=== PATIENT | female | born 1985 | race Hispanic/Latino ===

== ENCOUNTER 2018-10-16 18:51 | Emergency (ER) | payer OTHER ==
[2018-10-16 19:41] VITALS: BP 123/78
--- NOTE | 2018-10-16 20:20 | Emergency Department Report ---
Blank Doc - Documentation Documentation: This is a 33-year-old female that presents with acute on chronic to lower back pain. Stated has history of sciatica. This initial assessment/diagnostic orders/clinical plan/treatment(s) is/are subject to change based on patient's health status, clinical progression and re-assessment by fellow clinical providers in the ED. Further treatment and workup at subsequent clinical providers discretion. Patient/guardians urged not to elope from the ED as their condition may be serious if not clinically assessed and managed. Initial orders include: 1- Patient sent to [facility] for further evaluation and treatment
[2018-10-17] MEDS ORDERED: TORADOL PO ONE (00:31)
[2018-10-17] MEDS ORDERED: FLEXERIL PO ONE (00:31)
--- NOTE | 2018-10-17 00:31 | Emergency Department Report ---
ED Back Pain/Injury HPI - General Chief Complaint: Back Pain/Injury Stated Complaint: LOWER BACK PAIN/GROIN PAIN/BLADDER PROBLEMS Time Seen by Provider: 10/16/18 20:12 Source: patient Limitations: No Limitations - History of Present Illness Initial Comments: Pt is a 33 yo female who presents to the ED with c/o lower back pain that began a week ago. She has a hx of chronic back pain and sciatica. She denies any fall, injury, trauma, or heavy lifting. The patient has been ambulatory without difficulty. She denies any numbness, weakness, or bowel/bladder incontinence. She states she has been using tylenol/motrin and heat/ice without much relief. - Related Data Previous Rx's Medication Instructions Recorded Last Taken Type Cyclobenzaprine [Flexeril] 10 mg PO QHS PRN #10 tablet 10/17/18 Unknown Rx Naproxen 250 mg PO Q6HR PRN #20 tablet 10/17/18 Unknown Rx Allergies Allergy/AdvReac Type Severity Reaction Status Date / Time No Known Allergies Allergy Unverified 10/16/18 20:13 ED Review of Systems ROS: Stated complaint: LOWER BACK PAIN/GROIN PAIN/BLADDER PROBLEMS Other details as noted in HPI Comment: All other systems reviewed and negative ED Past Medical Hx - Social History Smoking Status: Current Every Day Smoker - Medications Home Medications: Home Medications Medication Instructions Recorded Confirmed Last Taken Type Cyclobenzaprine [Flexeril] 10 mg PO QHS PRN #10 tablet 10/17/18 Unknown Rx Naproxen 250 mg PO Q6HR PRN #20 tablet 10/17/18 Unknown Rx ED Physical Exam - General Limitations: No Limitations General appearance: alert, in no apparent distress - Head Head exam: Present: atraumatic, normocephalic - Eye Eye exam: Present: normal appearance - ENT ENT exam: Present: mucous membranes moist - Neck Neck exam: Present: normal inspection, full ROM. Absent: tenderness, meningismus - Respiratory Respiratory exam: Present: normal lung sounds bilaterally. Absent: respiratory distress, wheezes, rales, rhonchi, stridor, chest wall tenderness, accessory muscle use, decreased breath sounds, prolonged expiratory - Cardiovascular Cardiovascular Exam: Present: regular rate, normal rhythm, normal heart sounds. Absent: systolic murmur, rubs, gallop - Back Exam Back exam: Present: normal inspection, full ROM, paraspinal tenderness (mild left sided lumbar muscular paraspinal TTP), other (no midline C-spine, T-spine, or L-spine TTP, no step offs, no deformities ). Absent: vertebral tenderness - Neurological Exam Neurological exam: Present: alert, oriented X3, normal gait. Absent: motor sensory deficit - Psychiatric Psychiatric exam: Present: normal affect, normal mood - Skin Skin exam: Present: warm, dry, intact ED Course Vital Signs 10/16/18 10/16/18 19:33 20:13 Temperature 98.3 F 98.3 F Pulse Rate 101 H 102 H Respiratory 18 18 Rate Blood Pressure 123/78 123/78 O2 Sat by Pulse 99 99 Oximetry ED Medical Decision Making - Medical Decision Making Pt presents with lower back pain x 1 week. She has a hx of chronic back pain and sciatica. She denies any fall, injury, trauma, heavy lifting, numbness, weakness, bowel/bladder incontinence. She has mild left, lumbar paraspinal muscular TTP, no midline tenderness. Will give pt anti-inflammatories and muscle relaxers. Advised not to drive or operate heavy machinery while taking the muscle relaxer. Advised to follow up with PCP in the next 2-3 days. Return to the ED for new/worsening symptoms. - Differential Diagnosis Sciatica, muscle strain, chronic lower back pain Critical care attestation.: If time is entered above; I have spent that time in minutes in the direct care of this critically ill patient, excluding procedure time. ED Disposition Clinical Impression: Muscle strain Disposition: [id number] TO HOME OR SELFCARE Is pt being admited?: No Does the pt Need Aspirin: No Condition: Stable Instructions: Muscle Strain (ED) Additional Instructions: Follow up with a primary care doctor in the next 2-3 days. Only use muscle relaxer at night as needed and do not drive or operate heavy machinery. Return to the emergency room for any new or worsening symptoms. Prescriptions: Cyclobenzaprine [Flexeril] 10 mg PO QHS PRN #10 tablet PRN Reason: Muscle Spasm Naproxen 250 mg PO Q6HR PRN #20 tablet PRN Reason: Pain, Moderate (4-6) Referrals: TRUDY FUENTES MD [Primary Care Provider] - 2-3 Days Time of Disposition: 00:37 Print Language: AUSTRIAN
== END 2018-10-17 01:10 | disposition home or self-care (01) ==
LOC: ED 18:51
DX: S39.012A Strain of muscle, fascia and tendon of lower back, initial encounter (principal); F17.200 Nicotine dependence, unspecified, uncomplicated; X58.XXXA Exposure to other specified factors, initial encounter; Y93.89 Activity, other specified; Y92.89 Other specified places as the place of occurrence of the external cause; Y99.8 Other external cause status
CPT/HCPCS: 99282